=== PATIENT | male | born 1950 | race Caucasian/White ===

== ENCOUNTER 2016-07-29 11:59 | Outpatient (CLI) | payer MEDICARE, BC ==
--- NOTE | 2016-07-29 13:46 | Diagnostic Imaging Report ---
Indication: Cough Technique: AP and lateral views of the chest. Findings: Comparison: None Mild disc space narrowing with marginal osteophyte formation lower thoracic spine. Aortic arch mildly calcified. Remaining bones and extra pulmonary soft tissues, remainder of the cardiomediastinal silhouette, pulmonary vasculature and parenchyma, and pleural surfaces are unremarkable. IMPRESSION: No evidence of acute cardiopulmonary disease Chronic changes as described
== END 2016-07-29 13:29 | disposition home or self-care (01) ==
LOC: RAD 11:59
DX: R05 Cough (principal); R06.02 Shortness of breath
CPT/HCPCS: 71020